=== PATIENT | male | born 1980 | race Caucasian/White ===

== ENCOUNTER 2017-03-29 20:53 | Emergency (ER) | payer OTHER ==
[~2017-03-29] VITALS: Ht 182.9 cm; Wt 104.3 kg
[~2017-03-29 20:53] MED LIST: BAYER CHEWABLE81 MG PO; CLEOCIN HCL300 MG PO; NOHOMEMEDICATIONS; NORCO 5-325 TA1 EACH PO; PRED FORTE 1% EY5 M1 OP; RITALIN10 MG PO; TOBREX5 ML OPHTHALMIC; UNICOMPLEX M TA1 TA1
[2017-03-29 21:56] VITALS: BP 138/84
== END 2017-03-29 21:56 | disposition home or self-care (01) ==
LOC: ER 20:53
DX: F10.129 Alcohol abuse with intoxication, unspecified (principal); S09.90XA Unspecified injury of head, initial encounter; I10 Essential (primary) hypertension; F90.9 Attention-deficit hyperactivity disorder, unspecified type; F12.10 Cannabis abuse, uncomplicated; Z88.2 Allergy status to sulfonamides; W18.30XA Fall on same level, unspecified, initial encounter; Y93.89 Activity, other specified; Y92.091 Bathroom in other non-institutional residence as the place of occurrence of the external cause; Y99.8 Other external cause status

== ENCOUNTER 2021-06-14 20:57 | Emergency (ER) | payer OTHER ==
[~2021-06-14] VITALS: Ht 182.9 cm; Wt 117.9 kg
[2021-06-14 20:59] VITALS: BP 182/105
[2021-06-14] MEDS ORDERED: CELEXA 20 MG TA20 MG PO (21:05)
== END 2021-06-14 22:00 | disposition home or self-care (01) ==
LOC: ER 20:57
DX: S61.551A Open bite of right wrist, initial encounter (principal); S51.051A Open bite, right elbow, initial encounter; I10 Essential (primary) hypertension; Z90.49 Acquired absence of other specified parts of digestive tract; Z79.899 Other long term (current) drug therapy; Z88.0 Allergy status to penicillin; Z88.2 Allergy status to sulfonamides; W45.0XXA Nail entering through skin, initial encounter; Y93.89 Activity, other specified; Y92.89 Other specified places as the place of occurrence of the external cause; Y99.8 Other external cause status